=== PATIENT | male | born 1980 | race Caucasian/White ===

== ENCOUNTER 2018-02-19 12:29 | Emergency (ER) | payer OTHER ==
[2018-02-19] MEDS ORDERED: MORPHINE 4 MG/ML SDV IVP ONE (12:40)
[2018-02-19] MEDS ORDERED: ONDANSETRON 4 MG/2 ML VIAL IVP ONE (12:40)
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
[2018-02-19] MEDS ORDERED: NS(*) 0.9% 1000 ML BAG 1,000 ML IV ONE (12:48)
[2018-02-19] MEDS ORDERED: IOPAMIDOL 76% 75 ML INFUS BTL 75 ML ONE (12:59)
[2018-02-19 13:00] LABS: PLATELET COUNT, AUTOMATED 267 K/uL (150-450)
[2018-02-19] MEDS ORDERED: fentaNYL CITR 100 MCG/2 ML AMP IVP ONE (13:30)
--- NOTE | 2018-02-19 13:46 | RADIOLOGY IMAGING REPORT ---
FACILITY: [facility] [place] PATIENT NAME: Jacky Hitchcock : 1980 MR: [id number] V: [id number] EXAM DATE: [id number] ORDERING PHYSICIAN: MARLEY HARRIS TECHNOLOGIST: Location: [facility] [place] Patient: Jacky Hitchcock : 1980 Visit/Account:[id number] Date of Sevice: 02/19/2018 EXAMINATION: CT abdomen with IV contrast CT pelvis with IV contrast HISTORY: Right flank pain and groin pain. TECHNIQUE: Spiral scan was through the abdomen and pelvis during injection of nonionic iodinated in travenous contrast. Sagittal and coronal reformatted images are also submitted. One of the following dose optimization techniques was utilized in the performance of this exam: Autom ated exposure control; adjustment of the mA and/or kV according to the patient's size; or use of an i terative reconstruction technique. Specific details can be referenced in the facility's radiology C T exam operational policy. CONTRAST: 75 mL of IV Isovue-370 COMPARISON: None available. FINDINGS: Lower chest: Negative. Liver / biliary: Negative. Pancreas: Negative. Spleen: Negative. Adrenal glands: Negative. Kidneys: 2 mm stone in the right ureterovesical junction with mild right hydronephrosis and delayed r ight nephrogram. 2 mm nonobstructing stone in the inferior left kidney (series 4, image 67). Pelvic structures: Otherwise negative. Bowel: Normal appendix. No bowel obstruction or bowel wall thickening. Peritoneum / retroperitoneum / mesenteries: Negative. Vessels: Negative. Musculoskeletal / Body wall: Heterotopic bone formation immediately lateral to the left hip joint. Sm all osteophytes along the posterior margin of the left acetabulum. These findings are likely sequela of a prior injury. No acute osseous abnormality. No aggressive osseous lesions. Lymph node assessment: Negative. IMPRESSION: 1. 2 mm stone in the right ureterovesical junction with mild right hydronephrosis and delayed right n ephrogram. 2. 2 mm nonobstructing stone in the inferior left kidney. Report Dictated By: Marley Mariscal MD at 02/19/2018 1:37 PM Report E-Signed By: Marley Mariscal MD at 02/19/2018 1:43 PM WSN:[id number]
[2018-02-19] MEDS ORDERED: KETOROLAC 30 MG/ML VIAL IVP ONE (14:10)
[2018-02-19] MEDS ORDERED: TAMS0.4C25 PO (15:31)
[2018-02-19] MEDS ORDERED: ONDA4TAB PO (15:31)
[2018-02-19] MEDS ORDERED: KET10 PO (15:31)
[2018-02-19 15:38] VITALS: BP 133/80
== END 2018-02-19 15:40 | disposition home or self-care (01) ==
LOC: ER 12:30
DX: N20.0 Calculus of kidney (principal); N13.30 Unspecified hydronephrosis
CPT/HCPCS: 74177; 81001; 83690; 85025; 96361; 96374; 96375; 99284; J1885; J2270; J2405; J3010; J7030; Q9967; 82040; 82247; 82310; 82374; 82435; 82565; 82947; 84075; 84132; 84155; 84295; 84450; 84460; 84520